=== PATIENT | male | born 1955 | race Caucasian/White ===

== ENCOUNTER 2017-06-20 05:50 | Inpatient (IN) | payer BC ==
[2017-05-25 11:22] VITALS: BMI 18.0
--- NOTE | 2017-05-25 11:56 | PAT Medication Instructions ---
Service Date May 25, 2017. Current Home Medication List Celecoxib (CeleBREX), 200 MG PO NOON Multivitamin (Multivitamin), 1 TAB PO NOON Ondansetron Hcl (Zofran), 8 MG PO PRN PRN for Nausea Sertraline (Zoloft), 50 MG PO NOON Medication Instructions For Your Scheduled Surgery - Check with surgeon for instructions: Celecoxib (CeleBREX), 200 MG PO NOON - Hold the following medications the morning of surgery: Multivitamin (Multivitamin), 1 TAB PO NOON - Take the following medications the morning of surgery with a sip of water: Sertraline (Zoloft), 50 MG PO NOON Ondansetron Hcl (Zofran), 8 MG PO PRN PRN for Nausea (if needed) - Take the following medications as scheduled the night before surgery: Multivitamin (Multivitamin), 1 TAB PO NOON Ondansetron Hcl (Zofran), 8 MG PO PRN PRN for Nausea (if needed) Sertraline (Zoloft), 50 MG PO NOON If you have any questions please call us at [phone] or [phone] or [phone]
[2017-05-25 12:35] LABS: URINE APPEARANCE CLEAR (CLEAR); URINE BILIRUBIN NEG (NEG); URINE COLOR YELLOW; URINE NITRITE NEG (NEG); URINE SPECIFIC GRAVITY 1.012 (1.000-1.030); UROBILINOGEN NEG (NEG)
[2017-05-25 12:36] LABS: BASO % 0.7 %; BASO ABS # 0.03 K/uL (0-0.2); COMPLETE YES; EOS % 3.7 %; HEMATOCRIT 45.3 % (42-52); IG% 0.2 %; LYMPH % 15.8 %; LYMPH ABS # 0.64 K/uL (1.2-3.4); MEAN CELL VOLUME 91.3 fL (80-100); MEAN CORPUSCULAR HEMOGLOBIN 30.8 pg (25-34); MEAN CORPUSCULAR HGB CONC 33.8 g/dl (32-36); MEAN PLATELET VOLUME 9.7 fL (7.4-10.4); MONO % 18.7 %; NEUT % 60.9 %; PLATELET COUNT 328 K/uL (130-400); RED BLOOD COUNT 4.96 M/uL (4.7-6.1); WHITE BLOOD COUNT 4.06 K/uL (4.8-10.8)
[2017-05-25 12:41] LABS: MANUAL MICROSCOPIC REQUIRED? NO; REVIEW REQ? NO
[2017-05-25 12:48] LABS: PARTIAL THROMBOPLASTIN RATIO 1.1; PROTHROMBIN TIME (PATIENT) 10.6 SECONDS (9.0-12.0)
[2017-05-25 13:09] LABS: BUN/CREATININE RATIO 16.3 (10-20); CALCIUM 9.4 mg/dl (8.5-10.1); CREATININE 0.69 mg/dl (0.60-1.40); POTASSIUM 4.2 mmol/L (3.5-5.1)
--- NOTE | 2017-05-25 13:15 | DIAGNOSTIC IMAGING REPORT ---
TWO VIEW CHEST CLINICAL HISTORY: Preoperative examination. FINDINGS: PA and lateral chest radiographs are compared to study dated 06/12/2013. The cardiomediastinal silhouette is unremarkable. Atherosclerotic calcification is noted in the thoracic aorta. Findings suggest emphysema. No airspace consolidation or pleural effusion is identified. There is no pneumothorax. The bony thorax appears intact. Thoracic scoliosis is noted. IMPRESSION: Suspect emphysema. There is no active disease in the chest. Electronically signed by: Tito Fu M.D. 05/25/2017 1:13 PM Dictated Date/Time: 05/25/2017 1:04 PM
[2017-05-25 13:55] LABS: ESTIMATED AVERAGE GLUCOSE 94 mg/dl; HA1C FLAG Normal (Normal)
--- NOTE | 2017-06-17 11:34 | HISTORY & PHYSICAL EXAMINATION ---
DATE OF ADMISSION: 06/20/2017 CHIEF COMPLAINT: Left hip pain. HISTORY OF PRESENT ILLNESS: The patient is a 61-year-old male with known osteoarthritis about his left hip. He had a previous left femur fracture. He now has evidence of posttraumatic arthritis as a result of this. He had a previous right hip resurfacing procedure by another physician. He has ongoing pain and disability due to the arthritis in his left hip and now desires to proceed with left total hip arthroplasty. PAST MEDICAL HISTORY: Kidney stones, throat cancer. PAST SURGICAL HISTORY: Right hip as above, kidney stone procedure surgery for his throat cancer. MEDICATIONS: Sertraline 50 mg daily, multivitamin daily. ALLERGIES: No known drug allergies. SOCIAL HISTORY: Noncontributory. REVIEW OF SYSTEMS: The patient does have a history of difficult intubation due to his throat cancer. PHYSICAL EXAMINATION: GENERAL: Well-nourished, well-developed male who appears his stated age. HEAD, EYES, EARS, NOSE, AND THROAT: Normocephalic, atraumatic, extraocular movements intact, oropharynx pink and moist. NECK: Supple without adenopathy. LUNGS: Clear to auscultation bilaterally. HEART: Regular rate and rhythm. ABDOMEN: Soft, nontender, nondistended. EXTREMITIES: The upper extremities are within normal limits. The left hip demonstrates limited range of motion. There is limitation of active and passive internal/external rotation. X-RAYS: X-rays were reviewed. He has severe osteoarthritis about the left hip with complete loss of the joint space. There are large osteophytes about the femoral head and acetabulum. There is evidence of subchondral sclerosis. He does have a resurfaced hip on the right side. ASSESSMENT: Left hip degenerative joint disease. PLAN: Risks versus benefits were discussed. Consent was obtained. The patient's primary care physician is Dr. Emmanuel and Dr. Rob. We will proceed with left total hip arthroplasty upon preoperative workup and medical clearance.
[~2017-06-20] VITALS: Ht 170.2 cm; Wt 54.6 kg
[2017-06-20] VITALS (8 sets, daily range): BP systolic 120–142; BP diastolic 70–91; PULSE 52–67; TEMP 36.3–36.8; O2SAT 95–100; Ht 170.2 cm; Wt 54.6 kg
[~2017-06-20 05:50] MED LIST: CLB/200 PO; MULT-506 PO; ONDA8TAB6 PO; SERT50TA PO
[2017-06-20] MEDS ORDERED: ACETAMINOPHEN 500 MG TAB PO SCH (06:00)
[2017-06-20] MEDS ORDERED: GABAPENTIN 300 MG CAP PO SCH (06:00)
[2017-06-20] MEDS ORDERED: CeleBREX 200 MG CAP PO SCH (06:00)
[2017-06-20] MEDS ORDERED: ROPIVACAINE 5MG/ML 30 ML 150 MG, BUPIVACAINE/EPINEPHR 0.5% MPF 30 ML, KETOROLAC TROMETH... INFIL SCH ×7 (06:00)
[2017-06-20] MEDS ORDERED: LACTATED RINGER'S 1000ML 500 ML IV ONE (06:00)
[2017-06-20] MEDS ORDERED: CEFAZOLIN 2000 MG/60 ML D5W 60 ML IV SCH (06:00)
[2017-06-20] MEDS ORDERED: METOCLOPRAMIDE HCL 10 MG TAB PO SCH (06:00)
[2017-06-20] MEDS ORDERED: LACTATED RINGER'S 1000ML IV SCH (06:00)
[2017-06-20] MEDS ORDERED: DEXAMETHASONE 4 MG TAB PO SCH (06:00)
[2017-06-20] MEDS ORDERED: LACTATED RINGER'S 1000ML 1,000 ML IV SCH (06:00)
[2017-06-20] MEDS ORDERED: FAMOTIDINE 20 MG TAB PO SCH (06:00)
[2017-06-20] MEDS ORDERED: PROPOFOL IV EMULSION 10 MG/ML 20 ML VIAL IV ONE (06:19)
[2017-06-20] MEDS ORDERED: MIDAZOLAM HCL 1 MG/ML 2ML VIAL ONE ×2 (06:19→07:41)
[2017-06-20] MEDS ORDERED: FENTANYL CITRATE INJ 50 MCG/1 ML 2 ML VIAL ONE (06:19)
[2017-06-20] MEDS ORDERED: BUPIVACAINE 0.5 % 5 MG/1 ML PF 10ML VIAL ONE (06:36)
[2017-06-20] MEDS ORDERED: POVIDONE-IODINE OP SOLN 30 ML BTL ONE (06:51)
[2017-06-20] MEDS ORDERED: BACITRACIN 50000 UNIT VIAL ONE (06:51)
[2017-06-20] MEDS ORDERED: ORTHO JOINT ANESTHETIC ONE (06:51)
--- NOTE | 2017-06-20 07:01 | History & Physical Bridge Note ---
H&P Re-Evaluation Bridge Note: I have examined the patient, reviewed the History & Physical and in the interval since the performance of the History & Physical I have noted the following changes of clinical significance: No changes noted
[2017-06-20] MEDS: TRANEXAMIC ACID INJ 1,000 MG in SODIUM CHLORIDE 0.9% 100ML 100 ML IV SCH ×2 (07:04→11:43)
[2017-06-20] MEDS ORDERED: EpHEDrine SULFATE INJ 50 MG/ML AMP IV PRN (07:45)
[2017-06-20] MEDS ORDERED: FENTANYL CITRATE INJ 50 MCG/1 ML 2 ML VIAL IV PRN (07:45)
[2017-06-20] MEDS ORDERED: ONDANSETRON INJ 2 MG/ML 2 ML VIAL IV PRN ×2 (07:45→09:00)
[2017-06-20] MEDS ORDERED: ATROPINE SULFATE 0.1 MG/ML 5ML SYR IV PRN (07:45)
--- NOTE | 2017-06-20 08:22 | [facility] Post Operative Brief Note ---
Immediate Operative Summary Operative Date Jun 20, 2017. Pre-Operative Diagnosis Left hip degenerative joint disease Post-Operative Diagnosis same Procedure(s) Performed Left Total Hip Arthroplasty Surgeon Dr. Auguste Keeper Head Surgeon(s) Wilfrid Crandall PA-C Estimated Blood Loss 50cc Findings severe OA Specimens a. left femoral head Complication(s) None Disposition Recovery Room / PACU
--- NOTE | 2017-06-20 08:34 | OPERATIVE REPORT ---
DATE OF OPERATION: 06/20/2017 PREOPERATIVE DIAGNOSIS: Osteoarthritis, left hip. POSTOPERATIVE DIAGNOSIS: Osteoarthritis, left hip. PROCEDURE: Left connective total hip arthroplasty. SURGEON: Dr. Auguste. [facility]: Wilfrid Crandall PA-C. ANESTHESIA: Spinal. COMPLICATIONS: None. DESCRIPTION OF PROCEDURE: Following induction of adequate spinal anesthesia, the patient was placed in right lateral decubitus position and left Marie-Langenbeck incision was made. Subcutaneous tissue was sharply dissected. Electrocautery used for hemostasis. The fascia was incised throughout the length of the wound and a henao scissor placed beneath the short external rotators. The pyriformis was tagged with #1 Vicryl. The short external rotators were divided from the posterior aspect of the femur using electrocautery. These were swept posteriorly. A T-capsulotomy incision was made and the hip was dislocated using a combination of flexion, adduction, and internal rotation. Exposure of the femoral neck with old-style Hohmann and a blunt Hohmann was carried out and a femoral rasp was utilized as a guide for making the appropriate level femoral neck cut. This bone fragment was removed and reserved on the back table. Next, attention was turned to the acetabulum where bone hook was used to retract the femur while the offset retractors were placed anterior and posteriorly. A double-angled Hohmann was placed in superior and anterior position exposing the acetabulum nicely. Acetabular labrum as well as posterior capsule elements were removed using a long knife and a long pickup. Fovea centralis was cleared of all soft tissue. Sequential reamings were carried up to a 54 and decision was made to proceed with impaction of a 54 trabecular metal cup. This was impacted and held using a single 35 mm bone screw. The acetabular liner was placed with 15 of elevated posterior wall in the superior and posterior position. Next, attention was turned to the femoral portion of the case where a Bovie and pickup was used to further clear short external rotators from their insertion on the femur. Box osteotome was used to gain access to the femoral canal and the T-handled rasp and a rattail rasp were used to further open and lateral the canal. Sequentially raspings were carried up to a 4 which gave good fit and fill of the proximal femur. A trial reduction was carried out and std offset femoral neck component was chosen as the size to be used. A -5 x 36 mm ceramic femoral head was impacted into position, +0 head was utilized. The trial reduction was stable in all degrees of rotation with no [id number] impingement. The hip was dislocated. The trial components were removed and the final femoral stem, neck, and femoral head combination were assembled on the back table and impacted into position. Hip was relocated. Range of motion checked once again successful and the wound was irrigated. The pyriformis repaired to the greater trochanter using #1 Vicryl [id number] suture. A Hemovac drain was placed and the fascia was closed using #1 Vicryl, subcutaneous tissue was closed using 0 Dexon, and skin was closed with shantel. Sterile dressing of Adaptic, 4 x 4's, ABDs, and foam tape was applied. The patient tolerated the procedure well. Due to the complex nature of the procedure, the entire surgery was performed with the operational assistance of Wilfrid Crandall PA-C. The medical claims assistant, under direct supervision, was involved in the actual performance of all aspects of the surgical procedure including hemostasis, tissue retraction and incision, instrument management, patient positioning, and wound closure. I attest to the content of the Intraoperative Record and any orders documented therein. Any exceptions are noted below. TESSY
[2017-06-20] MEDS ORDERED: MAGNESIUM HYDROXIDE SUSP 30 ML UDC PO PRN (09:00)
[2017-06-20] MEDS ORDERED: ALUMINUM/MAGNESIUM/SIMETH (MAALOX MAX) 30 ML UDC PO PRN (09:00)
[2017-06-20] MEDS ORDERED: OXYCODONE HCL IR 5 MG TAB (IMMEDIATE RELEASE) PO PRN (09:00)
[2017-06-20] MEDS ORDERED: TAMSULOSIN HCL 0.4 MG CAP PO PRN (09:00)
[2017-06-20] MEDS ORDERED: ZOLPIDEM TARTRATE 5 MG TAB PO PRN (09:00)
[2017-06-20] MEDS ORDERED: METOCLOPRAMIDE HCL INJ 5 MG/ML 2 ML VIAL IV PRN (09:00)
[2017-06-20] MEDS ORDERED: MoRPHine SULFATE 2 MG/ML CARP IV PRN (09:00)
--- NOTE | 2017-06-20 09:29 | DIAGNOSTIC IMAGING REPORT ---
LEFT PELVIS/UNILATERAL HIP 1 VIEW CLINICAL HISTORY: Postoperative evaluation. COMPARISON: Pelvis radiograph July 16, 2013. FINDINGS: Alignment of the total left hip arthroplasty is anatomic. There is no periprosthetic fracture or unexpected radiopaque foreign body. Acetabular screw is in place. Screw extends through the cortex of the superior medial wall of the left acetabulum. Surgical drain is in place. Irregularity of the subtrochanteric portion of the left femur is unchanged since exam of July 16, 2013 and may reflect an old, healed fracture. There are stable postoperative findings consistent with a right hip resurfacing. IMPRESSION: Status post total left hip arthroplasty. No periprosthetic fracture or unexpected radiopaque foreign body. Acetabular screw extends through the medial cortex of the acetabulum. Electronically signed by: Blu Galo M.D. 06/20/2017 9:27 AM Dictated Date/Time: 06/20/2017 9:21 AM
--- NOTE | 2017-06-20 09:30 | Anesthesiology Progress Note ---
Anesthesia Post Op Note Date & Time Jun 20, 2017 at 09:30 Vital Signs Pain Intensity: 0 Vital Signs Past 12 Hours Date Time Temp Pulse Resp B/P (MAP) Pulse Ox O2 Delivery O2 Flow Rate FiO2 06/20/17 09:20 49 11 115/76 100 Oxymask 10 06/20/17 09:10 52 13 111/72 99 Oxymask 10 06/20/17 09:00 50 15 125/73 100 Oxymask 06/20/17 08:51 36.1 88 19 148/86 99 Oxymask 06/20/17 06:12 36.4 56 20 142/91 95 Room Air Notes Mental Status: alert / awake / arousable, participated in evaluation Pt Amnestic to Procedure: Yes Nausea / Vomiting: adequately controlled Pain: adequately controlled Airway Patency, RR, SpO2: stable & adequate BP & HR: stable & adequate Hydration State: stable & adequate Neuraxial Anesthesia: was administered, sensory block is resolving Anesthetic Complications: no major complications apparent
[2017-06-20] MEDS: D5W AND 1/2NSS + 20MEQ KCL 1,000 ML IV SCH ×2 (11:30→20:39)
[2017-06-20] MEDS: KETOROLAC TROMETHAMINE 30 MG/ML VIAL IV. SCH ×3 (12:34→23:53)
[2017-06-20] MEDS: ACETAMINOPHEN 500 MG TAB PO SCH ×2 (14:21→21:39)
[2017-06-20] MEDS: CEFAZOLIN IV 1,000 MG in DEXTROSE 5% 50ML 50 ML IV SCH ×2 (16:45→23:52)
[2017-06-20] MEDS: FERROUS GLUCONATE 324 MG TAB PO SCH (17:42)
[2017-06-20] MEDS: PREGABALIN 75 MG CAP PO SCH (20:39)
[2017-06-20] MEDS: DOCUSATE SODIUM 100 MG CAP PO SCH (20:40)
[2017-06-20] MEDS: ASPIRIN 81 MG ECTAB PO SCH (20:40)
[2017-06-21 03:23] VITALS: BP 138/83; PULSE 52; TEMP 36.4; O2SAT 99
[2017-06-21 05:52] LABS: BASO % 0.1 %; BASO ABS # 0.01 K/uL (0-0.2); COMPLETE YES; EOS % 0.1 %; HEMATOCRIT 36.3 % (42-52); IG% 0.2 %; LYMPH % 6.7 %; LYMPH ABS # 0.55 K/uL (1.2-3.4); MEAN CELL VOLUME 90.3 fL (80-100); MEAN CORPUSCULAR HEMOGLOBIN 30.8 pg (25-34); MEAN CORPUSCULAR HGB CONC 34.2 g/dl (32-36); MEAN PLATELET VOLUME 9.4 fL (7.4-10.4); MONO % 13.9 %; PLATELET COUNT 245 K/uL (130-400); RED BLOOD COUNT 4.02 M/uL (4.7-6.1); WHITE BLOOD COUNT 8.27 K/uL (4.8-10.8)
[2017-06-21] MEDS: ACETAMINOPHEN 500 MG TAB PO SCH ×2 (06:02→13:17)
[2017-06-21] MEDS: KETOROLAC TROMETHAMINE 30 MG/ML VIAL IV. SCH (06:02)
[2017-06-21] MEDS: D5W AND 1/2NSS + 20MEQ KCL 1,000 ML IV SCH (06:03)
[2017-06-21 06:34] LABS: BUN/CREATININE RATIO 15.9 (10-20); CALCIUM 8.1 mg/dl (8.5-10.1); CREATININE 0.68 mg/dl (0.60-1.40)
[2017-06-21] MEDS ORDERED: DEXAMETHASONE INJ 10 MG in SYRINGE 0 ML IV SCH (07:30)
[2017-06-21 07:45] VITALS: BP 138/84; PULSE 56; TEMP 36.4; O2SAT 97
[2017-06-21] MEDS: FERROUS GLUCONATE 324 MG TAB PO SCH ×2 (08:57→13:17)
[2017-06-21] MEDS: DOCUSATE SODIUM 100 MG CAP PO SCH (08:58)
[2017-06-21] MEDS: ASPIRIN 81 MG ECTAB PO SCH (08:58)
[2017-06-21] MEDS: PREGABALIN 75 MG CAP PO SCH (08:59)
[2017-06-21] MEDS ORDERED: SERTRALINE HCL 50 MG TAB PO SCH (09:00)
[2017-06-21] MEDS ORDERED: PANTOprazole SOD 40 MG TAB PO SCH (09:00)
[2017-06-21] MEDS ORDERED: MULTIVITAMIN TAB PO SCH (09:00)
--- NOTE | 2017-06-21 09:32 | Orthopedic Progress Note ---
Orthopedic Progress Note Date of Service Jun 21, 2017. Subjective Post OP Day: 1 Reports: feeling well, Denies: chest pain, SOB, nausea / vomiting, light headedness, calf pain Additional Notes: FEELING WELL, WAS ALREADY AMBULATING THE HALLWAYS. Objective calves soft nontender, N/V intact, hip located, dressing C/D/I (SILVERLON), A&O x3, toes mobile, hemovac drainage (295/25CC PER SHIFT) Date Time Temp Pulse Resp B/P (MAP) Pulse Ox O2 Delivery O2 Flow Rate FiO2 06/21/17 09:14 Room Air 06/21/17 07:45 36.4 56 16 138/84 (102) 97 Room Air 06/21/17 03:23 36.4 52 16 138/83 (101) 99 Room Air 06/20/17 23:54 Room Air 06/20/17 23:14 36.8 67 16 125/73 (90) 97 Room Air 06/20/17 18:55 36.7 60 16 133/79 (97) 96 Room Air 06/20/17 15:10 Room Air 06/20/17 12:58 63 18 141/85 (103) 06/20/17 11:56 52 16 120/70 (87) 100 Nasal Cannula 2.0 06/20/17 11:00 59 16 125/80 (95) 100 Nasal Cannula 2.0 06/20/17 10:30 36.3 57 16 126/77 (93) 100 Nasal Cannula 2.0 06/20/17 10:00 36.3 60 16 131/81 (98) 99 Nasal Cannula 2.0 06/20/17 10:00 Nasal Cannula 2.0 06/20/17 10:00 Nasal Cannula 2.0 06/20/17 09:45 36.1 53 16 119/74 100 Nasal Cannula 2 06/20/17 09:40 56 17 112/70 100 Nasal Cannula 2 Laboratory Results 24 Hours: Test 06/21/17 05:16 White Blood Count 8.27 K/uL Red Blood Count 4.02 M/uL Hemoglobin 12.4 g/dL Hematocrit 36.3 % Mean Corpuscular Volume 90.3 fL Mean Corpuscular Hemoglobin 30.8 pg Mean Corpuscular Hemoglobin Concent 34.2 g/dl Platelet Count 245 K/uL Mean Platelet Volume 9.4 fL Neutrophils (%) (Auto) 79.0 % Lymphocytes (%) (Auto) 6.7 % Monocytes (%) (Auto) 13.9 % Eosinophils (%) (Auto) 0.1 % Basophils (%) (Auto) 0.1 % Neutrophils # (Auto) 6.53 K/uL Lymphocytes # (Auto) 0.55 K/uL Monocytes # (Auto) 1.15 K/uL Eosinophils # (Auto) 0.01 K/uL Basophils # (Auto) 0.01 K/uL Assessment & Plan Assessment: POD#1 SP LEFT IFEOMA Inhouse Planning Pain Management: Celebrex, PO Tylenol, Oxy IR DVT Prophylaxis: TEDs, SCDs, ASA Discharge Planning Discharge Planning: home with oppt (DC HOME TODAY. )
--- NOTE | 2017-06-21 09:33 | Discharge Instructions ---
Discharge Instructions Date of Service Jun 21, 2017. Admission Reason for Admission: Left Hip Osteoarthritis Discharge Discharge Diagnosis / Problem: SP LEFT IFEOMA Discharge Goals Goal(s): Decrease discomfort, Improve function, Increase independence Activity Recommendations Activity Limitations: per Instructions/Follow-up section . Instructions / Follow-Up Instructions / Follow-Up ACTIVITY RECOMMENDATIONS: SELF CARE INSTRUCTIONS AFTER TOTAL HIP REPLACEMENT Until the incision and soft tissues around your hip have healed, there is a possibility that the hip prosthesis could dislocate. A. Observe the following precautions to prevent dislocation: 1. Don't bend your hip greater than 90 degrees. 2. Avoid crossing your legs or ankles while standing or lying. 3. Sit with your feet placed 6 inches apart. 4. When sitting, keep your knees below your hips. Sit on a firm surface, avoid deep, soft chairs and couches. Use an elevated toilet seat in the bathroom. 5. Don't bend over at the waist. Use a long handled shoehorn and a sock aid to help you put on your shoes and socks. A tacker off can help you picked edge sewing machine operator objects that are too high or too low to reach. 6. Keep car riding to a minimum for at least one month after surgery. B. Your balance may be shaky for a while. Use crutches or a walker until directed by your doctor. C. Use hand rails when walking on stairs. D. Wear low heeled shoes with non-slip soles. E. Be sure that your floors are free of things that could trip you - throw rugs , electrical cords, small objects. Avoid wet and waxed floors, especially with crutches and canes. F. Try to walk several times a day with rest periods between. G. Continue with all the exercises taught to you in the hospital. Again, make walking a part of your daily routine. SPECIAL CARE INSTRUCTIONS: VERY IMPORTANT TO READ AND REVIEW A. You may still be at risk for phlebitis and blood clots. 1. Wear surgical stockings (MEGA hose) for 2 weeks after surgery to improve circulation and reduce swelling. 2. Take Aspirin 81mg twice daily for 4 weeks or as directed by your doctor. This is your blood thinner. 3. High risk patients may be prescribed a stronger blood thinner if necessary. 4. If you are on Coumadin normally, your family doctor/cna gna should monitor your blood work. Expect a phone call the day of or the day after bloodwork is drawn to adjust your dosage. B. You must take antibiotics before having dental work, bladder, bowel and other surgery. Your doctor will provide you with a permanent card to carry describing precautions. C. Call [facility] if you have a fever, redness or swelling around the incision, cloudy drainage from incision, or sudden increase in pain in your hip, not relieved by your regular pain medication. D. Please call the office at if you have any concerns or questions about your operation or recovery. * YOU MAY SHOWER, NO TUB BATHS UNTIL CLEARED BY YOUR DOCTOR. * WEAR MEGA HOSE 20 HOURS PER DAY FOR 2 WEEKS. * YOU SHOULD USE A WALKER OR CRUTCHES FOR 2-4 WEEKS. THIS WILL HELP PREVENT STRAIN ON YOUR HIP MUSCLE AND ALLOW IT TO HEAL PROPERLY. YOU MAY WEAN TO A CANE TOLERATED. * MOST PATIENTS WILL HAVE HOME NURSING FOR THERAPY. IF YOU DECIDE TO DO OUTPATIENT PHYSICAL THERAPY, PLEASE SCHEDULE THIS 3 TIMES PER WEEK. * YOU MAY HAVE A LARGE, BAND-GORGE LIKE DRESSING (SILVERON). THIS WILL REMAIN ON YOUR INCISION FOR 7 DAYS, THEN CAN BE REMOVED. IF INCISION IS LEAKING THROUGH DRESSING, PLEASE CALL THE OFFICE . FOLLOW UP VISIT: If appointment is not already scheduled: Please call [facility] to make a follow-up appointment for 2 weeks after your surgery at . Current Hospital Diet Patient's current hospital diet: Regular Diet Discharge Diet Recommended Diet: Regular Diet Procedures Procedures Performed: Left Total Hip Arthroplasty Pending Studies Studies pending at discharge: no Laboratory Results Hemoglobin A1c Test 05/25/17 12:04 Range/Units Estimated Average Glucose 94 mg/dl Hemoglobin A1c 4.9 4.5-5.6 % Medical Emergencies . Who to Call and When: Medical Emergencies: If at any time you feel your situation is an emergency, please call 911 immediately. . Non-Emergent Contact Non-Emergency issues call your: Surgeon . "Provider Documentation" section prepared by Esperanza Martin. . VTE Core Measure Inpt VTE Proph given/why not?: Other Anticoagulation, T.E.D. Stockings, SCD's [place] Drug Monitoring Program Search Results: patient reviewed within database
[2017-06-21] MEDS ORDERED: ASPEC81 PO (09:40)
[2017-06-21] MEDS ORDERED: RXC5 PO (09:40)
[2017-06-21] MEDS ORDERED: ACET-24 PO (09:40)
[2017-06-21] MEDS ORDERED: ONDA8TAB6 PO (09:40)
[2017-06-21] MEDS ORDERED: CLB/200 PO (09:40)
[2017-06-21 10:58] VITALS: BP 138/84; PULSE 56; TEMP 36.4; O2SAT 97
[2017-06-21] MEDS ORDERED: CeleBREX 200 MG CAP PO SCH (21:00)
--- NOTE | 2017-07-01 17:41 | DISCHARGE SUMMARY ---
CHIEF COMPLAINT: Left hip pain. Please see complete history and physical examination. HOSPITAL COURSE: The patient underwent left total hip arthroplasty without complication. He tolerated the procedure well and was discharged to the recovery room in stable condition. His postoperative course was relatively uneventful. His postoperative pain was reasonably well controlled with a combination of spinal anesthesia, intraoperative joint injection, IV, and oral pain medications. He was started on aspirin for DVT prophylaxis. He also utilized MEGA stockings and SCDs for additional prophylaxis. His H&H was stable and did not require transfusion. His surgical drain was discontinued on postoperative day 1, surgical dressing will remain in place for approximately 7 days postoperative. He tolerated postoperative physical therapy reasonably well as he was ambulating and transferring appropriately. He was observing all total hip precautions. He was discharged home on postoperative day 1. He will continue his physical therapy as an outpatient. He will continue his aspirin for DVT prophylaxis and follow up in our office in approximately 10-14 days for his initial postop evaluation.
== END 2017-06-21 14:44 | disposition home or self-care (01) | DRG 470 ==
LOC: C.ACU 05:50 → C.3E 06:30 → ENRESERV 09:21
PROC: 0SRB0JZ Replacement of Left Hip Joint with Synthetic Substitute, Open Approach (ICD-10-PCS; principal; 2017-06-20 07:30)
DX: M16.12 Unilateral primary osteoarthritis, left hip (principal); M16.52 Unilateral post-traumatic osteoarthritis, left hip; Z87.828 Personal history of other (healed) physical injury and trauma; Z85.819 Personal history of malignant neoplasm of unspecified site of lip, oral cavity, and pharynx; Z87.442 Personal history of urinary calculi; Z79.899 Other long term (current) drug therapy